=== PATIENT | male | born 1945 | race Caucasian/White ===

== ENCOUNTER 2019-05-24 19:03 | Inpatient (IN) | payer MEDICARE, OTHER ==
[~2019-05-24] VITALS: Ht 182.9 cm; Wt 86.2 kg
[2019-05-24] MEDS ORDERED: RIVA1PAT TD (19:14)
[2019-05-24] MEDS ORDERED: PANT40TA2 PO (19:14)
[2019-05-24] MEDS ORDERED: TAMS-3 PO (19:14)
--- NOTE | 2019-05-24 19:40 | NUR ---
Dr. Maya at bedside for MSE.
--- NOTE | 2019-05-24 19:55 | NUR ---
Xray at bedside.
[2019-05-24 20:05] LABS: BASOPHILS # (AUTO) 0.1 K/uL (0.0-8.0); BASOPHILS % (AUTO) 0.8 % (0.0-2.0); EOSINOPHILS # (AUTO) 0.3 K/uL (0.0-0.7); EOSINOPHILS % (AUTO) 4.4 % (0.0-7.0); HEMATOCRIT 42.6 % (36.7-47.1); HEMOGLOBIN 14.2 g/dL (12.5-16.3); LYMPHOCYTES # (AUTO) 1.2 K/uL (20.0-40.0); LYMPHOCYTES % (AUTO) 16.1 % (20.5-51.5); MEAN CORPUSCULAR HEMOGLOBIN 32.2 uug (23.8-33.4); MEAN CORPUSCULAR HGB CONC 33 g/dL (32.5-36.3); MEAN CORPUSCULAR VOLUME 96.6 fL (73.0-96.2); MONOCYTES # (AUTO) 0.6 K/uL (2.0-10.0); MONOCYTES % (AUTO) 8.1 % (0.0-11.0); NEUTROPHILS # (AUTO) 5.3 K/uL (1.8-8.9); NEUTROPHILS % (AUTO) 70.6 % (38.5-71.5); PLATELET COUNT (AUTO) 244 K/uL (152-348); RED BLOOD CELL COUNT(AUTO) 4.41 MIL/uL (4.06-5.63); WHITE BLOOD COUNT (AUTO) 7.6 K/uL (3.6-10.2)
[2019-05-24 20:16] LABS: CARBON DIOXIDE 30 mmol/L (21-32); CHLORIDE 105 mmol/L (98-107); CREATININE 1.1 mg/dL (0.6-1.3); GLUCOSE 102 mg/dL (74-106); POTASSIUM 4.3 mmol/L (3.5-5.1); UREA NITROGEN, BLOOD 15 mg/dL (7-18)
[2019-05-24 20:20] LABS: ALANINE AMINOTRANSFERASE 28 U/L (16-63); ALKALINE PHOSPHATASE 107 U/L (50-136); ASPARTATE AMINOTRANSFERASE 17 U/L (15-37); BILIRUBIN,DIRECT 0.1 mg/dL (0.0-0.2); BILIRUBIN,TOTAL 0.3 mg/dL (0.2-1.0); TOTAL PROTEIN, SERUM 6.7 g/dL (6.4-8.2)
[2019-05-24 20:23] LABS: ACETAMINOPHEN < 10.0 ug/mL (10-30)
--- NOTE | 2019-05-24 20:23 | NUR ---
Inserted In/out reynoso catheter, pt tolerated procedure well, urine sample sent to lab.
[2019-05-24 20:32] LABS: *BILIRUBIN,URIN NEGATIVE (NEGATIVE); *BLOOD, URINE 1+ (NEGATIVE); *CLARITY,URINE CLEAR (CLEAR); *COLOR,URINE YELLOW (YELLOW); *KETONES,URINE NEGATIVE (NEGATIVE); *UROBILINOGEN,URINE 0.2 E.U./dl (NORMAL); LEUKOCYTE ESTERASE ,URINE 1+ (NEGATIVE); NITRITE, URINE POSITIVE (NEGATIVE); PH,URINE 6.5 (5.0-8.0); UGLUCOSE NEGATIVE (NEGATIVE)
--- NOTE | 2019-05-24 20:38 | NUR ---
Pt out of ER for CT.
[2019-05-24 20:42] LABS: *AMPHETAMINE, URINE NEGATIVE (NEGATIVE); *BARBITURATE, URINE NEGATIVE (NEGATIVE); *CANNABINOID, URINE NEGATIVE (NEGATIVE); *COCCAINE, URINE NEGATIVE (NEGATIVE); *OPIATE, URINE NEGATIVE (NEGATIVE); *PHENCYCLIDINE SCREEN,URINE NEGATIVE (NEGATIVE)
[2019-05-24 20:47] LABS: ETHANOL < 3 MG/DL (0-0)
[2019-05-24 20:49] LABS: BACTERIA,URINE MODERATE /HPF (NONE SEEN); RBC,URINE 20-50 /HPF (0-3); WBC,URINE 20-50 /HPF (0-3)
--- NOTE | 2019-05-24 20:51 | NUR ---
Pt back to ER from CT.
[2019-05-24] MEDS ORDERED: NITROFURANTOIN/NITROFURAN MAC 100 MG CAPSULE ONE (20:58)
[2019-05-24] MEDS ORDERED: NITROFURANTOIN/NITROFURAN MAC 100 MG CAPSULE PO ONE (21:00)
--- NOTE | 2019-05-24 21:25 | NUR ---
Pt medically cleared by Dr. Maya.
--- NOTE | 2019-05-24 21:28 | NUR ---
Called Kalen Weiss LCSW for pet eval, no answer, left message.
--- NOTE | 2019-05-24 21:36 | NUR ---
Called Kalen Weiss [facility] for pt psych eval.
--- NOTE | 2019-05-24 22:41 | NUR ---
Art Capilla ROLL UP OPERATOR at bedside for pt psych eval.
--- NOTE | 2019-05-24 23:41 | NUR ---
Report given to Milena RIOS MHU.
--- NOTE | 2019-05-24 23:50 | NUR ---
Patient arrived on unit via gurney from ER. Patient confused but pleasant. Needs multiple attempts at redirection to get him in the shower. Patient compliant with shower. Stand by assist with to bed. Bed alarm set. Will continue to monitor.
[2019-05-25] MEDS ORDERED: BLOOD SUGAR DIAGNOSTIC 1 EACH STRIP VI ONE
[2019-05-25] MEDS ORDERED: MAG HYDROX/AL HYDROX/SIMETH 30 ML LIQUID UDC PO PRN
[2019-05-25] MEDS ORDERED: MAGNESIUM HYDROXIDE 30 ML LIQUID UDC PO PRN
[2019-05-25] MEDS: LORAZEPAM 0.5 MG TABLET PO PRN ×3 (06:14→20:50)
--- NOTE | 2019-05-25 06:31 | NUR ---
Patient noted to be confused and anxious this morning. Ativan 0.5 given with apple sauce. Patient needed to be prompted several time to take medication. He slept less than 5 hour last night. Will endorse to oncoming shift.
[2019-05-25 07:30] VITALS: BP 106/68
[2019-05-25] MEDS: QUETIAPINE FUMARATE 25 MG TABLET PO SCH ×4 (09:28→20:51)
--- NOTE | 2019-05-25 10:01 | NUR ---
Social Work Note/Family Contact: personal care worker contacted patients daughter Nata, ([phone]) and gathered collateral. personal care worker explained patients treatment plan and discharge plan.
--- NOTE | 2019-05-25 10:03 | NUR ---
Social Work Note/Initial Discharge Plan: Patient currently resides at [facility] [address], [place] [address]; ([phone]). Per patients daughter Nata, ([phone]) expressed that she would want pt to go back or would want bilingual social worker find another alternative. site worker will work with the pt and the MD regarding appropriate discharge planning. SW will form a safe and proper discharge.
[2019-05-25] MEDS: CEphaleXIN 500 MG CAPSULE PO SCH ×3 (11:22→20:50)
--- NOTE | 2019-05-25 11:33 | NUR ---
Social Work Note/Individual Therapy Note: Social Work Note/Individual Therapy Note: hotel maintenance worker met with patient and provided brief supportive counseling. Patient presented quite confused and disoriented. Patient seemed mentally preoccupied.
--- NOTE | 2019-05-25 13:17 | NUR ---
Social Work Note/Discharge Plan Update: television maintenance worker spoke to Destini, ([phone]) and expressed that [facility] is not a locked facility but they have a sister facility called [place] which is a locked facility. Destini expressed they want to transfer patient there. television maintenance worker is waiting on Destini's discharge plan and will follow up.
--- NOTE | 2019-05-25 15:00 | NUR ---
Social Work Note/Discharge Plan Update: creamery worker spoke to Destini, ([phone]) and expressed that they will re-locate patient to there sister facility called [place] which is a locked facility. Jonathan, ([phone]) from [facility] expressed that patient is welcomed upon discharge.
[2019-05-25 16:00] VITALS: BP 105/70
--- NOTE | 2019-05-25 20:52 | NUR ---
Patient was approached with Oral PM medications. Patient slapped medicine cup out of nurses hands and screamed " I am not taking any medications you faggot.' Patient is very agitated and hostile towards staff and other patients. Sitter ordered by MD, but hospital is unable to accommodate. Monitoring closely for staff and patient safety.
[2019-05-25] MEDS ORDERED: LORAZEPAM 2 MG/1 ML VIAL IM ONE (21:00)
[2019-05-25] MEDS ORDERED: OLANZAPINE 10 MG VIAL IM ONE (21:00)
[2019-05-25 21:54] VITALS: BP 113/63
--- NOTE | 2019-05-25 22:15 | NUR ---
Patients behavior kept escalating , notified, order received to admin. Zyprexa 10 mg IM and Ativan 1 mg IM. Patient tolerated shot well. Security and sitter at bedside for staff and patient safety during injection. Dinkey Mechanic zackery provided patient a 1;1 sitter per order and to assure staff and patient safety. Continuing to monitor patients respiratory rate and mental status. No distress at this time.
--- NOTE | 2019-05-26 02:05 | NUR ---
GPS/NSG 1:1 24 justification form due at 1348 om 05/26/19. Form to be completed and assessed by nursing during a.m. shift. Patient continues to require nursing interventions through out night coordinator. Patient becomes combative and aggressive on approach, when attempting to provide care. Addendum: 05/26/19 at 0211 by NAVIN LOU RN on*
[2019-05-26] MEDS: CEphaleXIN 500 MG CAPSULE PO SCH ×3 (06:00→21:06)
[2019-05-26] MEDS: PANTOPRAZOLE SODIUM 40 MG TABLET.DR PO SCH (06:15)
--- NOTE | 2019-05-26 06:34 | NUR ---
Patient again refused to take oral medications this AM.Patient screamed " NO" when offered the medications. Bed bath given with 3 staff to hold patients arms and legs d/t kicking and punching by patient. Only 1.45 hour of sleep last night. Most of the night was spent with patient throwing legs over the side rails , attempting to hit staff or trying to get out of the bed. Continuing to monitor for patient and staff safety.
[2019-05-26] MEDS: QUETIAPINE FUMARATE 25 MG TABLET PO SCH ×4 (09:00→20:22)
[2019-05-26] MEDS ORDERED: TAMSULOSIN HCL 0.4 MG CAP.SR.24H PO SCH (09:00)
--- NOTE | 2019-05-26 15:09 | NUR ---
Gps/Precision Lens Grinder Apprentice- Patient remains asleep no distress, Remains with 1:1 Nursing supervision for safety.
[2019-05-26] MEDS: RIVASTIGMINE 4.6 MG PATCH TD SCH (15:24)
[2019-05-26 16:00] VITALS: BP 122/63
--- NOTE | 2019-05-26 17:30 | NUR ---
Gps/Integrated Pest Management Technician Patient awake, anxious, restless, needed couple of staff and 1 mobile security specialist to assist patient in providing pm care and hygiene.patient agitated/angry , gets uncooperative with his care Routine pm meds. was finally able to administer with his dinner. Noted to have aggressive behavior staff were made aware.
[2019-05-26 21:00] VITALS: BP 128/74
[2019-05-26] MEDS: TEMAZEPAM 7.5 MG CAPSULE PO PRN (22:40)
[2019-05-27] MEDS: CEphaleXIN 500 MG CAPSULE PO SCH (06:00)
--- NOTE | 2019-05-27 06:18 | NUR ---
Patient initially uncooperative and kept getting out of bed. After temazepam dose, patient slept a total of 3 hours only. Attended all needs. Still with sitter at bedside for safety.Will endorse accordingly.
[2019-05-27] MEDS: PANTOPRAZOLE SODIUM 40 MG TABLET.DR PO SCH (06:22)
[2019-05-27] MEDS: RIVASTIGMINE 4.6 MG PATCH TD SCH (09:04)
[2019-05-27] MEDS: QUETIAPINE FUMARATE 25 MG TABLET PO SCH ×4 (09:04→16:42)
--- NOTE | 2019-05-27 14:00 | NUR ---
Gps/Potato Chip Processing Supervisor- Susu KRAFT was in to see patient , sensitivity of urine CS was given.Orders received.
[2019-05-27] MEDS: LEVOFLOXACIN 500 MG TABLET PO SCH (15:56)
[2019-05-27 16:07] VITALS: BP 140/76
[2019-05-27] MEDS: TAMSULOSIN HCL 0.4 MG CAP.SR.24H PO SCH (20:44)
[2019-05-27] MEDS ORDERED: QUETIAPINE FUMARATE 25 MG TABLET PO SCH (21:00)
[2019-05-28] MEDS: TEMAZEPAM 7.5 MG CAPSULE PO PRN (00:36)
[2019-05-28] MEDS: PANTOPRAZOLE SODIUM 40 MG TABLET.DR PO SCH (06:08)
--- NOTE | 2019-05-28 06:27 | NUR ---
PT DIDN'T SLEEP.SITTER AT BEDSIDE. PT IN NO ACUTE DISTRESS. PT EASILY AGITATED. PT THROW THE SHOES AT THE SITTER AND TO THE NURSE. PT POOR INSIGHT AND CONFUSE. PT NEED REDIRECTION AND REORIENTATION. PRN MEDICATIONS . PT TOLERATED IT WELL. SAFETY AND COMFORT PROVIDED. WILL ENDORSE TO INCOMING NURSE FOR CONTINUITY OF CARE.
[2019-05-28] MEDS: LORAZEPAM 0.5 MG TABLET PO PRN ×2 (06:31→23:15)
[2019-05-28 07:30] VITALS: BP 145/91
[2019-05-28] MEDS ORDERED: QUETIAPINE FUMARATE 25 MG TABLET PO SCH ×2 (09:00→21:00)
[2019-05-28] MEDS: RIVASTIGMINE 4.6 MG PATCH TD SCH (10:47)
[2019-05-28 15:48] VITALS: BP 126/91
--- NOTE | 2019-05-28 15:57 | NUR ---
Social Work Note/Family Contact: finish repair worker contacted patients daughter Nata ([phone]) and left a voicemail in regard to patients treatment plan and discharge plan that patient is accepted to [facility] (LOCKED).
[2019-05-28] MEDS: LEVOFLOXACIN 500 MG TABLET PO SCH (17:28)
[2019-05-28 20:00] VITALS: BP 105/64
[2019-05-28] MEDS: TAMSULOSIN HCL 0.4 MG CAP.SR.24H PO SCH (20:08)
[2019-05-28] MEDS: CLONAZEPAM 1 MG TABLET PO SCH (20:08)
[2019-05-28] MEDS ORDERED: QUETIAPINE FUMARATE 100 MG TABLET PO SCH (21:00)
[2019-05-28] MEDS: ACETAMINOPHEN 325 MG TABLET PO PRN (23:16)
--- NOTE | 2019-05-28 23:28 | NUR ---
GPS: Pt.still awake at this time. Anxious,restless,confused,disoriented and non-sensical. Poor insight to present situation. On 1:1 sitter for safety. Resistive during care but without striking out behavior noted. Fall precautions observed. Will continue to re-orient prn. Ativan 0.5mg given for increased anxiety. Will monitor effectiveness.
[2019-05-29] MEDS: PANTOPRAZOLE SODIUM 40 MG TABLET.DR PO SCH (06:07)
[2019-05-29 07:30] VITALS: BP 110/56
--- NOTE | 2019-05-29 08:11 | NUR ---
Social Work Note/PC Hearing Notification: touch up worker contacted patients daughter Nata, ([phone]) and notified patients probable cause of hearing will be today.
[2019-05-29] MEDS: RIVASTIGMINE 4.6 MG PATCH TD SCH (08:15)
[2019-05-29 15:22] VITALS: BP 113/57
[2019-05-29] MEDS: LEVOFLOXACIN 500 MG TABLET PO SCH (15:55)
--- NOTE | 2019-05-29 17:07 | NUR ---
GPS: patient remain calm in his room, with 1:1 sitter for aggressive behavior, will continue monitor
[2019-05-29 20:00] VITALS: BP 96/71
[2019-05-29] MEDS: TAMSULOSIN HCL 0.4 MG CAP.SR.24H PO SCH (20:29)
[2019-05-29] MEDS: CLONAZEPAM 1 MG TABLET PO SCH (20:29)
[2019-05-29] MEDS ORDERED: QUETIAPINE FUMARATE 100 MG TABLET PO SCH (21:00)
[2019-05-29] MEDS: LORAZEPAM 0.5 MG TABLET PO PRN (22:42)
[2019-05-29] MEDS: ACETAMINOPHEN 325 MG TABLET PO PRN (22:45)
--- NOTE | 2019-05-30 06:00 | NUR ---
Patient slept 4.15 hours. 1:1 sitter at bedside. Patient was restless and had some episodes of agitation. PRN Ativan and Tylenol were given and patient was able to calm down and rest. Medications given as ordered and tolerated well. Will endorse to next shift.
[2019-05-30] MEDS: PANTOPRAZOLE SODIUM 40 MG TABLET.DR PO SCH (06:21)
--- NOTE | 2019-05-30 07:49 | NUR ---
RECEIVED REPORT FROM TOOTH GRINDER NURSE, PT IS ASLEEP, RESP EVEN/UNLABORED NO DISTRESS. WILL CONTINUE TO MONITOR.
[2019-05-30] MEDS: RIVASTIGMINE 4.6 MG PATCH TD SCH (09:00)
--- NOTE | 2019-05-30 09:57 | NUR ---
Social Work Note/Family Contact: plant nursery worker contacted patients daughter Nata ([phone]) and left a voicemail in regard to patients status treatment plan and discharge plan. plant nursery worker will follow up.
--- NOTE | 2019-05-30 10:00 | NUR ---
SITTER AT BEDSIDE ALL TIME, PT ASLEEP, RESP EVEN UNLABORED. WILL CONTINUE TO MONITOR.
[2019-05-30] MEDS ORDERED: OLANZAPINE 10 MG VIAL IM ONE (14:45)
--- NOTE | 2019-05-30 15:20 | NUR ---
GAVE 10 MG OF ZYPREXA TO PT WITH H2O TO LEFT UPPER ARM, PT HIT SAI GATE TENDER IN THE FACE. GATE TENDER REFUSED TO GO THE THE EMERGENCY ROOM. PT SITTING IN GERICHAIR SITTER AT BEDSIDE. WILL CONTINUE TO MONITOR.
--- NOTE | 2019-05-30 15:20 | NUR ---
CORRECTION, GAVE ZYPREXA IM WITH 2ML OF H20 IM TO LEFT ARM
[2019-05-30 16:00] VITALS: BP 108/60
--- NOTE | 2019-05-30 16:00 | NUR ---
PT SITTING ON JONE CHAIR CALM AND QUIET, SITTER AT BEDSIDE, NO ADVERSE REACTION NOTED FROM IM GIVEN.
[2019-05-30] MEDS: LEVOFLOXACIN 500 MG TABLET PO SCH (16:52)
--- NOTE | 2019-05-30 17:00 | NUR ---
PT TOOK LEVAQUIN PO ATB WITH APPLE SAUCE FED BY SITTER. PT REMAINS CALM AND QUIET.
--- NOTE | 2019-05-30 17:44 | NUR ---
PT REMAINS IN JONE CHAIR WITH SITTER AT BEDSIDE, NO ADVERSE REACTION, NO DISTRESS, WILL ENDORSE TO ARTIFICIAL GLASS EYE MAKER NURSE.
[2019-05-30] MEDS: TAMSULOSIN HCL 0.4 MG CAP.SR.24H PO SCH (20:07)
[2019-05-30] MEDS: CLONAZEPAM 1 MG TABLET PO SCH (20:07)
[2019-05-30] MEDS ORDERED: QUETIAPINE FUMARATE 100 MG TABLET PO SCH (21:00)
[2019-05-30] MEDS ORDERED: QUETIAPINE FUMARATE 200 MG TABLET PO SCH (21:00)
--- NOTE | 2019-05-30 21:09 | NUR ---
Received patient in his gerichair, with a 1 to 1. No behavioral issue at this time. med compliant, no distress noted. breathing even, unlabored. no indication of pain or discomfort. will continue to monitor
[2019-05-30 23:26] VITALS: BP 121/78
[2019-05-31] MEDS: PANTOPRAZOLE SODIUM 40 MG TABLET.DR PO SCH (06:08)
[2019-05-31 07:30] VITALS: BP 141/88
[2019-05-31] MEDS: RIVASTIGMINE 4.6 MG PATCH TD SCH (08:06)
[2019-05-31 16:00] VITALS: BP 114/69
[2019-05-31] MEDS: LEVOFLOXACIN 500 MG TABLET PO SCH (16:05)
--- NOTE | 2019-05-31 16:19 | NUR ---
GPS: patient sitting on Marquita Chair watching TV ( Football, eating his lunch in dining room, ) has1:1 sitter for aggressive behavior, patient would get agitated, still handle with precaution, will continue monitor
[2019-05-31 20:00] VITALS: BP 113/66
[2019-05-31] MEDS: CLONAZEPAM 1 MG TABLET PO SCH (20:11)
[2019-05-31] MEDS: OLANZAPINE 5 MG TABLET PO SCH (20:11)
[2019-05-31] MEDS: TAMSULOSIN HCL 0.4 MG CAP.SR.24H PO SCH (20:11)
[2019-05-31] MEDS ORDERED: TRAZODONE 50 MG TABLET PO SCH (21:00)
[2019-05-31] MEDS: LORAZEPAM 0.5 MG TABLET PO PRN (22:25)
[2019-05-31] MEDS: ACETAMINOPHEN 325 MG TABLET PO PRN (22:25)
[2019-06-01] MEDS: PANTOPRAZOLE SODIUM 40 MG TABLET.DR PO SCH (06:21)
--- NOTE | 2019-06-01 06:54 | NUR ---
PATIENT INTERMITTENTLY SLEEPING . PATIENT COMBATIVE AND AGGRESSIVE. 1:1 SITTER AT THE BED SIDE FOR SAFETY. NO SUICIDAL IDEATION NOTED. SLEPT FOR 2.30 HRS DURING THE SHIFT.
[2019-06-01] MEDS: RIVASTIGMINE 4.6 MG PATCH TD SCH (08:18)
--- NOTE | 2019-06-01 10:04 | NUR ---
Received pt. in concha chair verbally responsive. On 1;1 sitter for safety. All due meds given as ordered. Frequent rounding performed. Will continue to monitor.
[2019-06-01 12:42] VITALS: BP 106/80
--- NOTE | 2019-06-01 14:51 | NUR ---
Social Work Note/Family Contact: template layout worker contacted patients daughter Nata ([phone]) and left a voicemail in regard to patients treatment plan and discharge plan.
--- NOTE | 2019-06-01 15:00 | NUR ---
Gps/Payroll Accountant- Order to discontinue sitter received. Kept patient in front of the Nurses station for safety.Confused, disoriented, yells and calling out at times.Fed self after set up, needed prompting. Bladder incontinence noted, 2 Security Guards and 2 staff assisted patient in providing good hygiene, unpredictable behavior.Continue to monitor safety .Bouts of yelling spells noted.
[2019-06-01 16:18] VITALS: BP 115/72
[2019-06-01 20:26] VITALS: BP 104/71
[2019-06-01] MEDS: OLANZAPINE 5 MG TABLET PO SCH ×2 (22:00→22:02)
[2019-06-01] MEDS: CLONAZEPAM 1 MG TABLET PO SCH ×2 (22:00→22:02)
[2019-06-01] MEDS: TAMSULOSIN HCL 0.4 MG CAP.SR.24H PO SCH ×2 (22:00→22:03)
[2019-06-01] MEDS: TRAZODONE 50 MG TABLET PO SCH ×2 (22:00→22:03)
[2019-06-02] MEDS: PANTOPRAZOLE SODIUM 40 MG TABLET.DR PO SCH (07:00)
[2019-06-02 07:30] VITALS: BP 95/65
[2019-06-02] MEDS: RIVASTIGMINE 4.6 MG PATCH TD SCH (08:28)
[2019-06-02 16:00] VITALS: BP 110/72
--- NOTE | 2019-06-02 17:45 | NUR ---
RECEIVED PATIENT AOX1, CALM ASLEEP IN HIS ROOM, PATIENT FRIENDLY AND CALM, PATIENT TRANSFERRED TO JONE CHAIR, PATIENT ATTENDED GROUP ACTIVITY AND SING ALONG WITH OTHER PATIENT, PATIENT WANTS WATCH FOOTBALL GAME, WILL CONTINUE MONITOR
[2019-06-02] MEDS: CLONAZEPAM 1 MG TABLET PO SCH (20:04)
[2019-06-02] MEDS: OLANZAPINE 5 MG TABLET PO SCH (20:04)
[2019-06-02] MEDS: TAMSULOSIN HCL 0.4 MG CAP.SR.24H PO SCH (20:05)
[2019-06-02] MEDS: TRAZODONE 50 MG TABLET PO SCH (20:05)
[2019-06-02 20:35] VITALS: BP 106/75
[2019-06-03] MEDS: ACETAMINOPHEN 325 MG TABLET PO PRN (02:16)
[2019-06-03] MEDS: LORAZEPAM 0.5 MG TABLET PO PRN (02:16)
[2019-06-03] MEDS: PANTOPRAZOLE SODIUM 40 MG TABLET.DR PO SCH (06:03)
[2019-06-03] MEDS: RIVASTIGMINE 4.6 MG PATCH TD SCH (08:00)
[2019-06-03 08:48] VITALS: BP 125/65
[2019-06-03 20:00] VITALS: BP 104/70
[2019-06-03] MEDS: TRAZODONE 50 MG TABLET PO SCH (20:43)
[2019-06-03] MEDS: TAMSULOSIN HCL 0.4 MG CAP.SR.24H PO SCH (20:43)
[2019-06-03] MEDS: CLONAZEPAM 1 MG TABLET PO SCH (20:44)
[2019-06-03] MEDS: OLANZAPINE 5 MG TABLET PO SCH (20:44)
[2019-06-04] MEDS: PANTOPRAZOLE SODIUM 40 MG TABLET.DR PO SCH (07:00)
[2019-06-04] MEDS: RIVASTIGMINE 4.6 MG PATCH TD SCH (08:02)
[2019-06-04 15:32] VITALS: BP 102/49
--- NOTE | 2019-06-04 16:30 | NUR ---
GPS: RECEIVED PATIENT ASLEEP ON BED, PATIENT REPORTED OF HAVING ONLY 1 HOUR AND 15 MINUTES SLEEP AT NIGHT, PATIENT TRANSFERRED TO [facility], PATIENT DID NOT ATE BREAKFAST BUT ABLE TO EAT HIS LUNCH, PATIENT REMAINS TO BE CALM AND COOPERATIVE HOWEVER EASILY IRRITABLE,SEEN AND EXAMINED BY DR. MORRIS WILL CONTINUE MONITOR
--- NOTE | 2019-06-04 18:27 | NUR ---
PATIENT REFUSED DINNER, PATIENT REMAIN ASLEEP IN THE JONE CHAIR
[2019-06-04 19:45] VITALS: BP 120/84
[2019-06-04] MEDS: TAMSULOSIN HCL 0.4 MG CAP.SR.24H PO SCH (20:11)
[2019-06-04] MEDS: TRAZODONE 50 MG TABLET PO SCH (20:56)
[2019-06-04] MEDS: CLONAZEPAM 1 MG TABLET PO SCH (20:57)
[2019-06-04] MEDS ORDERED: OLANZAPINE 5 MG TABLET PO SCH (21:00)
[2019-06-05] MEDS: PANTOPRAZOLE SODIUM 40 MG TABLET.DR PO SCH (07:00)
[2019-06-05 07:30] VITALS: BP 152/86
[2019-06-05] MEDS: RIVASTIGMINE 4.6 MG PATCH TD SCH (08:12)
[2019-06-05] MEDS: LORAZEPAM 0.5 MG TABLET PO PRN ×2 (08:32→17:16)
[2019-06-05] MEDS ORDERED: TEMAZEPAM 15 MG CAPSULE PO PRN (09:00)
--- NOTE | 2019-06-05 15:48 | NUR ---
Social Work Note/Family Contact: drop board worker contacted patients daughter Nata ([phone]) and shared that patient will be discharged this week to [facility]. Patient agreed to discharge plans. drop board worker will follow up regularly.
[2019-06-05 16:05] VITALS: BP 98/66
[2019-06-05] MEDS: TAMSULOSIN HCL 0.4 MG CAP.SR.24H PO SCH (19:58)
[2019-06-05] MEDS: OLANZAPINE 5 MG TABLET PO SCH (19:58)
[2019-06-05] MEDS: CLONAZEPAM 1 MG TABLET PO SCH (19:58)
[2019-06-05 20:09] VITALS: BP 101/56
--- NOTE | 2019-06-06 06:12 | NUR ---
Patient slept a total of 1.30 hours. Up all night trying to get out of the bed. Patient refused Protonix this am by spitting it out of his mouth. Patient in Marquita chair at the nurses station. Continuing to keep patient safe. No distress at this time. Patient remains very confused and combative at times.
[2019-06-06] MEDS: PANTOPRAZOLE SODIUM 40 MG TABLET.DR PO SCH (06:16)
[2019-06-06 07:30] VITALS: BP 129/73
[2019-06-06 07:43] LABS: BASOPHILS # (AUTO) 0.1 K/uL (0.0-8.0); BASOPHILS % (AUTO) 0.9 % (0.0-2.0); EOSINOPHILS # (AUTO) 0.3 K/uL (0.0-0.7); EOSINOPHILS % (AUTO) 3.6 % (0.0-7.0); HEMATOCRIT 48.4 % (36.7-47.1); HEMOGLOBIN 16.2 g/dL (12.5-16.3); LYMPHOCYTES # (AUTO) 1.3 K/uL (20.0-40.0); MEAN CORPUSCULAR HEMOGLOBIN 32.2 uug (23.8-33.4); MEAN CORPUSCULAR HGB CONC 34 g/dL (32.5-36.3); MEAN CORPUSCULAR VOLUME 96.2 fL (73.0-96.2); MONOCYTES # (AUTO) 0.9 K/uL (2.0-10.0); MONOCYTES % (AUTO) 11.7 % (0.0-11.0); NEUTROPHILS # (AUTO) 5.1 K/uL (1.8-8.9); NEUTROPHILS % (AUTO) 66.8 % (38.5-71.5); PLATELET COUNT (AUTO) 251 K/uL (152-348); RED BLOOD CELL COUNT(AUTO) 5.03 MIL/uL (4.06-5.63); WHITE BLOOD COUNT (AUTO) 7.6 K/uL (3.6-10.2)
[2019-06-06] MEDS: RIVASTIGMINE 4.6 MG PATCH TD SCH (08:06)
[2019-06-06 08:34] LABS: BILIRUBIN,TOTAL 0.6 mg/dL (0.2-1.0); MAGNESIUM 2.3 mg/dL (1.8-2.4); POTASSIUM 3.6 mmol/L (3.5-5.1); TOTAL PROTEIN, SERUM 7.8 g/dL (6.4-8.2)
[2019-06-06] MEDS ORDERED: TEMAZEPAM 15 MG CAPSULE PO PRN (08:45)
[2019-06-06 16:00] VITALS: BP 105/78
--- NOTE | 2019-06-06 18:04 | NUR ---
GPS : RECEIVED PATIENT AOX1, ASLEEP ON THE CHAIR, PATIENT EASILY IRRITABLE AND COMBATIVE, , PATIENT SLEPT MOSTLY DURING THE DAY, PATIENT HAS POOR INTAKE DURING THE DAY, WILL CONTINUE MONITOR
--- NOTE | 2019-06-06 20:00 | NUR ---
Patient received into care sitting in gerichair, resting comfortably with 1:1 sitter at bedside. Patient is alert/oriented x1 with no s/s of acute distress or discomfort noted or observed by nurse. Personal items are within reach. All safety and fall precaution measures are in place. Will continue to monitor and assess.
[2019-06-06] MEDS: CLONAZEPAM 1 MG TABLET PO SCH (20:04)
[2019-06-06] MEDS: OLANZAPINE 5 MG TABLET PO SCH (20:04)
[2019-06-06] MEDS: TAMSULOSIN HCL 0.4 MG CAP.SR.24H PO SCH (20:05)
[2019-06-07] MEDS: LORAZEPAM 0.5 MG TABLET PO PRN ×2 (01:25→23:57)
[2019-06-07] MEDS: ACETAMINOPHEN 325 MG TABLET PO PRN ×2 (01:25→23:57)
--- NOTE | 2019-06-07 07:10 | NUR ---
RECEIVED PATIENT IN BED ASLEEP EASY TO AWAKE, AOX1. 1:1 SITTER AT BEDSIDE. PATIENT CALM AT THIS TIME. DENIES PAIN OR SOB. SAFETY AND FALL PREVENTION IN PLACE. CALL LIGHT IN REACH. BED IN LOW POSITION AND LOCKED. WILL CONTINUE TO MONITOR.
[2019-06-07] MEDS: PANTOPRAZOLE SODIUM 40 MG TABLET.DR PO SCH (07:30)
[2019-06-07] MEDS: RIVASTIGMINE 4.6 MG PATCH TD SCH (09:23)
--- NOTE | 2019-06-07 15:19 | NUR ---
Social Work Note/Family Contact: biofuels plant construction worker contacted patients daughter Nata ([phone]) and left a voicemail in regards to patient discharge plan.
[2019-06-07 17:08] VITALS: BP 113/82
--- NOTE | 2019-06-07 18:40 | NUR ---
PATIENT IN BED AWAKE, AOX1. 1:1 SITTER AT BEDSIDE. PATIENT CALM THROUGHOUT THE SHIFT. DENIES PAIN OR SOB. COMPLIANT WITH MEDICATIONS AND TREATMENT. SAFETY AND FALL PREVENTION IN PLACE. CALL LIGHT IN REACH. BED IN LOW POSITION AND LOCKED. WILL REPORT TO ONCOMING NURSE.
[2019-06-07] MEDS: CLONAZEPAM 1 MG TABLET PO SCH (21:55)
[2019-06-07] MEDS: TAMSULOSIN HCL 0.4 MG CAP.SR.24H PO SCH (21:55)
[2019-06-07] MEDS: OLANZAPINE 5 MG TABLET PO SCH (21:55)
[2019-06-08] MEDS: PANTOPRAZOLE SODIUM 40 MG TABLET.DR PO SCH (06:07)
--- NOTE | 2019-06-08 06:25 | NUR ---
PT DIDN'T SLEEP. SITTER AT BEDSIDE FOR SAFETY. PT RESTLESS GIVEN ONE TIME ATIVAN. PT TRYING TO PULL OUT HIS GOWN, TRYING TO GET OUT OF THE BED. PT NEEDS REDIRECTION. SAFETY AND COMFORT PROVIDED. WILL ENDORSE TO INCOMING NURSE FOR CONTINUITY OF CARE.
[2019-06-08] MEDS: LORAZEPAM 0.5 MG TABLET PO PRN (07:46)
--- NOTE | 2019-06-08 08:00 | NUR ---
Received pt. resting in bed alert oriented to self. Pt. confused and agitated. Oriented pt. to unit. Sitter at bedside. Pt. complaint with medication. Pt. denies SI/ HI. Safety measures in place. Will continue to monitor pt.
--- NOTE | 2019-06-08 08:06 | NUR ---
Social Work Note/Discharge: Patient will be discharged to a locked [facility] facility to [facility] [address] [address]; ([phone]) via Ambulance transportation. Please arrange Ambulance transportation for patient to be picked up at 12:00am. Sleeve Sewer spoke with Jonathan, Tank House Operator at [facility]; ([phone]), who stated patient will be accepted at facility today. Patient is alert and oriented x1, and is not able to plan for self-care at this time, but is willing to accept care provided for him at the facility. Patient denies any suicidal or homicidal ideations. Patient is aware and agreeable with discharge plans. Patients daughterNata ([phone]) is aware and agreeable with discharge plans. Patient will continue to follow-up with her Psychiatrist Dr. Castelan and Clearing Tub Worker Dr. Astorga at [facility] [id number] [place] [id number]; ([phone]). Patient will follow-up at the center. Patient presents with euthymic mood and congruent affect.
[2019-06-08] MEDS: RIVASTIGMINE 4.6 MG PATCH TD SCH (08:07)
--- NOTE | 2019-06-08 08:08 | NUR ---
Social Work Note/Firearms Report: Tugboat Mate completed and submitted a [employer] firearms report for 5250 grave disability certification. A copy of report has been placed in patient chart.
--- NOTE | 2019-06-08 08:41 | NUR ---
Social Work Note/Family Contact: nutrition worker contacted patients daughter Nata ([phone]) and left a voicemail that patient will be discharged today at to [facility].
--- NOTE | 2019-06-08 13:30 | NUR ---
Pt. discharged. Called [facility] for report. Removed ID band. Made Copy of all discharge papers. Provided pt. with all belongings. Vital signs stable. Safety measures in place. Pt. left via ambulance.
== END 2019-06-08 13:30 | DRG 885 ==
LOC: ER 19:06 → GPS 23:49 → GPSOV3 06-06 20:50
PROVIDERS: ADMIT Psychiatry & Neurology Psychiatry; ATTEND Nurse Practitioner Acute Care
DX: F29 Unspecified psychosis not due to a substance or known physiological condition (principal); G93.41 Metabolic encephalopathy; N39.0 Urinary tract infection, site not specified; F02.81 Dementia in other diseases classified elsewhere, unspecified severity, with behavioral disturbance; D68.59 Other primary thrombophilia; G30.9 Alzheimer's disease, unspecified; G20 Parkinson's disease; B96.5 Pseudomonas (aeruginosa) (mallei) (pseudomallei) as the cause of diseases classified elsewhere; K21.9 Gastro-esophageal reflux disease without esophagitis; N40.0 Benign prostatic hyperplasia without lower urinary tract symptoms; J32.9 Chronic sinusitis, unspecified; Z79.899 Other long term (current) drug therapy; Z91.83 Wandering in diseases classified elsewhere; D75.89 Other specified diseases of blood and blood-forming organs; Z74.09 Other reduced mobility; R26.81 Unsteadiness on feet
CPT/HCPCS: 36415; 70030-TC; 70450; 71045; 80307; 83735; 84100; 84443; 85025; 87077; 87086; 93005; A4663; C1758; G0480; G0480-TC; J2060; J2358